=== PATIENT | female | born 1980 | race Hispanic/Latino ===

== ENCOUNTER → 2017-05-19 | Day surgery (SDC) | payer SELFPAY ==
[~2017-05-19] VITALS: Ht 157.5 cm; Wt 63.5 kg
--- NOTE | 2017-05-19 13:05 | Operative Report ---
Operative/Inv Procedure Report Surgery Date: 05/19/17 Name of Procedure: Excision back cyst Exchange bilateral breast implants Pre-Operative Diagnosis: Ruptured left silicone breast implant [place] back cyst Post-Operative Diagnosis: Same clinical rupture of implants despite preoperative ultrasound findings Estimated Blood Loss: tony Surgeon/Hand Bunch Maker: Louis Echevarria MD Anesthesia: general endotracheal tube Operative/Procedure Note Note: Patient was counseled regards the procedure the alternatives the risks and expected outcomes as relates to request for surgical intervention to treat an ultrasound reported ruptured left breast implant. As well as patient has a symptomatic cyst of the left back and is increasing in size and symptoms. She signed informed consent. She was able to the implants which are 300 mL silicone textured implants for replacement. The patient was taken to the operating room after signing informed consent and being marked in the standing position. Chest reprepped and draped in usual sterile fashion after the application of Venodyne boots followed by general anesthesia. Incision was made above the left inframammary fold which while in the supine position was approximately 2 cm cephalad to the fold in the standing position. Therefore this would allow the scar to be on the bottom of the breast when standing and in a curvilinear shadow increase of the breast wall supine. This was deepened into the capsule which was entered. The implant was removed and found to have no clinical rupture. The area was examined and no masses or other pathology were identified. Copious irrigation was carried out with triple antibiotic solution as well as Betadine. A small capsulotomy was done in the inferior medial position to allow the implant to sit a bit better. Sutures were placed before the placement of the implant which was done with the no touch technique/glove changes Dianne funnel Betadine to the skin with nipple covers. The wound was closed in 3 layers. Similar procedure was done on the right with similar findings. Steri-Strips applied to the wound. Of note prior to the procedure the patient was in the lateral decubitus and a 2 cm cyst was removed from the left back and closed in 3 layers after hemostasis was obtained. Ends dictation
== END ==
LOC: STS 02:00
DX: T85.49XA Other mechanical complication of breast prosthesis and implant, initial encounter (principal); Z41.1 Encounter for cosmetic surgery; L72.11 Pilar cyst
CPT/HCPCS: 88305; C9399; J0690; J1580; J2250